=== PATIENT | female | born 1950 | race African-American/Black ===

== ENCOUNTER 2017-04-23 19:27 | Emergency (ER) | payer MEDICAID, OTHER ==
[~2017-04-23] VITALS: Ht 157.5 cm; Wt 75.0 kg
[~2017-04-23 19:27] MED LIST: IOHEXOL-300 100 ML BOTTLE ONE; SODIUM CHLORIDE 0.9% 10ML VIAL ONE
[2017-04-23] MEDS ORDERED: MORPHINE SULFATE 4 MG/ML CPJ (NOT FOR IM USE) IV STA (19:56)
[2017-04-23] MEDS ORDERED: SODIUM CHLORIDE 0.9% 1,000 ML IV ONE (19:56)
[2017-04-23] MEDS ORDERED: ONDANSETRON HCL 4MG/2ML VIAL IV STA (19:56)
[2017-04-23 20:13] LABS: BASOPHILS % 0.3 % (0.0-2.0); EOSINOPHILS % 1.8 % (0.0-5.0); HEMATOCRIT. 37.7 % (36.0-48.0); HEMOGLOBIN. 12.5 g/dL (12.0-16.0); LYMPHOCYTES % 24.8 % (20.0-50.0); MEAN CORPUSCULAR HEMOGLOBIN 30.8 pg (28.0-32.0); MEAN CORPUSCULAR VOLUME 92.8 fL (81.0-99.0); MEAN PLATELET VOLUME 9.7 fl (7.4-10.4); NEUTROPHILS % 63.1 % (40.0-76.0); PLATELET 239 x1000/uL (130-400); RED BLOOD CELL COUNT 4.07 mill/uL (4.2-5.4); RED CELL DISTRIBUTION WIDTH 14.8 % (11.6-14.6)
[2017-04-23 20:17] LABS: CHLORIDE 111 mEq/L (98-107)
[2017-04-23 20:18] LABS: INR 1.1
[2017-04-23 20:22] LABS: CARBON DIOXIDE 22 mEq/L (21-32)
[2017-04-24 00:05] LABS: CLARITY URINE CLEAR (CLEAR); COLOR URINE YELLOW (YELLOW); GLUCOSE URINE NEGATIVE (NEGATIVE); KETONES URINE NEGATIVE (NEGATIVE); LEUKOCYTE ESTERASE URINE NEGATIVE (NEGATIVE); NITRITE URINE NEGATIVE (NEGATIVE); OCCULT BLOOD URINE NEGATIVE (NEGATIVE); PROTEIN URINE NEGATIVE (NEGATIVE); SPECIFIC GRAVITY URINE 1.085 (1.005-1.030)
[2017-04-24 01:40] VITALS: BP 130/60
== END 2017-04-24 02:08 | disposition home or self-care (01) ==
LOC: ER 20:36
DX: R10.33 Periumbilical pain (principal); R11.0 Nausea; I10 Essential (primary) hypertension; Z85.3 Personal history of malignant neoplasm of breast
CPT/HCPCS: 36415; 74177; 80053; 81003; 83690; 85025; 85610; 96374; 96375; 99285; A4216; J2270; J2405; J7030; Q9967; Z7610

== ENCOUNTER 2017-04-26 15:26 | Emergency (ER) | payer OTHER ==
[~2017-04-26] VITALS: Ht 162.6 cm; Wt 85.0 kg
[2017-04-26] MEDS ORDERED: ONDANSETRON HCL 4MG/2ML VIAL IV STA (15:39)
[2017-04-26] MEDS ORDERED: KETOROLAC 30MG/ML VIAL IV STA (15:39)
[2017-04-26] MEDS ORDERED: SODIUM CHLORIDE 0.9% 1,000 ML IV ONE (15:39)
[2017-04-26] MEDS ORDERED: FAMOTIDINE 20MG/2ML VIAL IV ONE (15:45)
[2017-04-26 16:14] LABS: BASOPHILS % 0.4 % (0.0-2.0); EOSINOPHILS % 2.2 % (0.0-5.0); HEMATOCRIT. 35.5 % (36.0-48.0); HEMOGLOBIN. 11.9 g/dL (12.0-16.0); LYMPHOCYTES % 23.6 % (20.0-50.0); MEAN CORPUSCULAR HEMOGLOBIN 30.8 pg (28.0-32.0); MEAN PLATELET VOLUME 9.8 fl (7.4-10.4); MONOCYTES % 14.4 % (2.0-8.0); NEUTROPHILS % 59.4 % (40.0-76.0); PLATELET 220 x1000/uL (130-400); RED BLOOD CELL COUNT 3.86 mill/uL (4.2-5.4); RED CELL DISTRIBUTION WIDTH 14.4 % (11.6-14.6)
[2017-04-26 16:34] LABS: CHLORIDE 109 mEq/L (98-107)
[2017-04-26 16:38] LABS: CARBON DIOXIDE 25 mEq/L (21-32)
[2017-04-26 17:34] LABS: CLARITY URINE CLEAR (CLEAR); COLOR URINE YELLOW (YELLOW); KETONES URINE NEGATIVE (NEGATIVE); LEUKOCYTE ESTERASE URINE NEGATIVE (NEGATIVE); NITRITE URINE NEGATIVE (NEGATIVE); OCCULT BLOOD URINE NEGATIVE (NEGATIVE); PROTEIN URINE NEGATIVE (NEGATIVE)
[2017-04-26 19:01] VITALS: BP 145/74
== END 2017-04-26 19:04 | disposition home or self-care (01) ==
LOC: ER 15:26
DX: R10.9 Unspecified abdominal pain (principal); R11.0 Nausea; I10 Essential (primary) hypertension; Z85.3 Personal history of malignant neoplasm of breast
CPT/HCPCS: 36415; 71010; 74000; 76700; 80053; 81003; 83690; 85025; 93005; 96361; 96374; 96375; 99285; J1885; J2405; J3490; J7030; A4315